=== PATIENT | male | born 1985 | race Two or more races ===

== ENCOUNTER 2017-03-13 05:49 | Emergency (ER) | payer OTHER ==
[~2017-03-13] VITALS: Ht 182.9 cm; Wt 81.6 kg
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
--- NOTE | 2017-03-13 05:58 | NUR ---
PT HAS BEEN CHARGE AND IS RELEASED FROM [facility].
--- NOTE | 2017-03-13 06:07 | NUR ---
PT PLACED IN C-COLLAR.
--- NOTE | 2017-03-13 06:26 | NUR ---
DR. DEL REAL IS AT THE BEDSIDE.
[2017-03-13] MEDS ORDERED: IV NS 0.9% 1,000 ML BAG IV ONE (06:30)
[2017-03-13] MEDS ORDERED: FENTANYL PF 100MCG/2ML AMPUL IV ONE (06:30)
--- NOTE | 2017-03-13 06:30 | NUR ---
PT LOG ROLLED BY KRYSTA VALDOVINOS, RN AND MYSELF. PT'S HEAD IMMOBILIZED.
[2017-03-13] MEDS ORDERED: FENTANYL PF 100MCG/2ML AMPUL ONE (06:50)
--- NOTE | 2017-03-13 06:52 | NUR ---
18G IV STARTED, BLOOD DRAWN AND SENT TO LAB, PT REC'D IVF ORDERED.
[2017-03-13 06:54] LABS: HEMATOCRIT 46 % (39-51); HEMOGLOBIN 15.2 g/dL (13.5-17.5); LYMPHOCYTES # (AUTO) 1.2 /CMM (0.8-4.8); LYMPHOCYTES % (AUTO) 19.6 % (20.0-44.0); MEAN CORPUSCULAR HEMOGLOBIN 31 PG (26.0-33.0); MEAN CORPUSCULAR HGB CONC 33 g/dl (31.0-36.0); MEAN CORPUSCULAR VOLUME 93 fL (80-96); MONOCYTES # (AUTO) 0.5 /CMM (0.1-1.30); MONOCYTES % (AUTO) 7.6 % (2.0-12.0); NEUTROPHILS # (AUTO) 4.6 /CMM (1.8-8.9); NEUTROPHILS % (AUTO) 72.8 % (43.0-81.0); PLATELET COUNT (AUTO) 173 /CMM (150-450); WHITE BLOOD COUNT (AUTO) 6.3 K/uL (4.3-11.0)
[2017-03-13 07:02] LABS: CALCIUM, SERUM 9.1 mg/dL (8.5-10.1); CARBON DIOXIDE 23 mmol/L (21-32); CHLORIDE 106 mmol/L (98-107); GLUCOSE 122 mg/dL (74-106); SODIUM SERUM 141 mmol/L (136-145); UREA NITROGEN, BLOOD 14 mg/dL (7-18)
[2017-03-13 07:08] LABS: ALANINE AMINOTRANSFERASE 74 U/L (12-78); ALBUMIN 4.2 g/dL (3.4-5.0); ALCOHOL, BLOOD 135 mg/dL (0-0); ALKALINE PHOSPHATASE 81 U/L (46-116); ASPARTATE AMINOTRANSFERASE 69 U/L (15-37); BILIRUBIN,DIRECT 0.1 mg/dL (0.0-0.2); BILIRUBIN,TOTAL 0.4 mg/dL (0.2-1.0); TOTAL PROTEIN, SERUM 8.3 g/dL (6.4-8.2)
[2017-03-13 07:10] LABS: TROPONIN I < 0.017 ng/mL (0.00-0.056)
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
[2017-03-13] MEDS ORDERED: CT SWABBABLE VALVE TRANS SET 1 EA INFUS.SET MC ONE (07:31)
[2017-03-13] MEDS ORDERED: IOHEXOL-300 100 ML VIAL IV ONE (07:31)
[2017-03-13] MEDS ORDERED: IV NS 0.9% 250 ML IV ONE (07:31)
[2017-03-13] MEDS ORDERED: IOHEXOL 50 ML IV ONE (07:56)
--- NOTE | 2017-03-13 08:15 | NUR ---
PT BACK FROM CT SCAN
[2017-03-13 09:48] VITALS: BP 120/79
--- NOTE | 2017-03-13 09:49 | NUR ---
Patient discharged to home in stable condition. Written and verbal after care instructions given. Patient verbalizes understanding of instruction. patient ambulatory with steady gait. aao x4. prescriptions given. pt leaving with family via private car.
== END 2017-03-13 09:49 | disposition home or self-care (01) ==
LOC: ER 05:51
DX: S30.1XXA Contusion of abdominal wall, initial encounter (principal); S20.212A Contusion of left front wall of thorax, initial encounter; S20.211A Contusion of right front wall of thorax, initial encounter; S10.91XA Abrasion of unspecified part of neck, initial encounter; F10.129 Alcohol abuse with intoxication, unspecified; Z98.890 Other specified postprocedural states; V49.49XA Driver injured in collision with other motor vehicles in traffic accident, initial encounter; Y93.89 Activity, other specified; Y92.410 Unspecified street and highway as the place of occurrence of the external cause; Y99.8 Other external cause status
CPT/HCPCS: 36415; 70450; 70498; 71010; 71260; 72125; 74160; 80048; 80076; 84484; 85025; 93005; 96361; 96374; 99285; A4606; G0480; J3010; J7050; Q9967 ×2; Z7610